=== PATIENT | female | born 1950 | race Caucasian/White ===

== ENCOUNTER 2016-08-19 10:13 | Inpatient (IN) | payer MEDICARE ==
[2016-08-19] VITALS (11 sets, daily range): BP systolic 115–146; BP diastolic 57–90; PULSE 67–125; RESP 15–31; O2SAT 90–94
[~2016-08-19] VITALS: Ht 160 cm; Wt 97.0 kg
[~2016-08-19 10:13] MED LIST: ALBU2.5V4 IH; ALBU8.5H2 INHALATION; ASPI-973 PO; CYCL10TA9 PO; FURO-129 PO; HYDR-656 PO; KLO2T PO; LEVO75TA4 PO; METO25TA6 PO; MORP-32 PO; NITR0.4T6 SL; OXYC10TA8 PO; PANT40TA3 PO; POTA2TAB5 PO; PRA20 PO; VENL150C PO; VITA150T PO; WARF4TAB6 PO
--- NOTE | 2016-08-19 10:54 | DRSVH ---
PROCEDURE: X-RAY CHEST ONE VIEW, PORTABLE ([id number]) INDICATIONS: 66 year-old female with dyspnea. TECHNIQUE: One view of the chest was acquired. COMPARISON: [facility], CR, XR CHEST 1VW (PORTABLE), 09/29/2015, 20:13. [facility] (PORT[facility]), 05/17/2015, 15:16. [facility], CR, XR CHEST 2VW, 09/2015, 10:50. FINDINGS: Surgical changes and devices: None. Lungs and pleura: No pleural effusions or pneumothorax. Lungs are clear. Mediastinum: Mediastinal contours appear normal. Heart size is normal. Bones and chest wall: No suspicious bony lesions. Overlying soft tissues appear unremarkable. IMPRESSION: No acute cardiopulmonary disease. Dictated by: Eliazar Boles M.D. on 08/19/2016 at 10:53 Approved by: Eliazar Boles M.D. on 08/19/2016 at 10:53
--- NOTE | 2016-08-19 11:53 | ED.REPORT ---
HPI-Dyspnea / Wheezing Date of Service Aug 19, 2016 ED Provider: Jayy Lewis MD Patient has a three-month history of progressive shortness of breath. He states that her at-home medications or shortness of breath consist of albuterol inhaler as well as nebulized. This morning she states that she became increasingly short of breath and the albuterol was not able to adequately cover her symptoms. She frequently sees her PCP but does not have a nail sticker at this time. She states that her shortness of breath has become increasingly worse over the last couple of months to the point that she can hardly walk within her house without getting short of breath. She has never had a lung function test. Nursing Notes Stated Complaint: SHORTNESS OF BREATH Chief Complaint: Respiratory Distress Nursing Notes Reviewed: Yes Allergies: Coded Allergies: heparin (Verified Allergy, Unknown, RASH, 09/29/15) GAVE MORPHINE AND HEPARIN TODAY IV A FEW MIN APART, SHORTLY AFTER NOTED RASH SPREADING UP RIGHT FA. MD CALLED IN STOPPED ALL OTHER IV MEDS PT GIVEN BENADRYL, RASH WENT AWAY OVER 15 MIN. PT TAKES MORPHINE ER TABLETS DAILY quetiapine (Verified Adverse Reaction, Severe, Hallucinations, HEARING VOICES, 08/19/16) Scheduled Albuterol Neb Soln (Albuterol Neb Soln) 2.5 Mg/3 Ml Vial.neb 2.5 MG IH QID Albuterol/Ipratropium (Combivent Respimat Inhal [place]) 120 Spr/4 Gm Inhaler 1 PUFF IH QID Aspirin (Aspirin) 81 Mg Tablet 81 MG PO QAM Clonazepam (Clonazepam) 2 Mg Tab 2 MG PO BID Cyclobenzaprine (Cyclobenzaprine) 10 Mg Tablet 20 MG PO HS Fluticasone/Salmeterol (Advair Hfa 115-21 Mcg Inhaler) 12 Gm Hfa.aer.ad 1 PUFF IH BID Furosemide (Lasix) 20 Mg Tablet 60 MG PO QAM Haloperidol (Haloperidol) 10 Mg Tablet 10 MG PO HS Levothyroxine (Levothyroxine) 75 Mcg Tablet 75 MCG PO QAM Metoprolol Tartrate (Metoprolol Tartrate) 25 Mg Tablet 12.5 MG PO BID Morphine Sulfate ER (Morphine Sulfate ER) 15 Mg Tablet.er 15 MG PO BID Nitroglycerin SL (Nitroglycerin SL) 0.4 Mg Tab.subl 0.4 MG SL Q5MIN Pantoprazole DR (Pantoprazole DR) 40 Mg Tablet.dr 40 MG PO DAILY Potassium Chloride ER (Potassium Chloride ER) 20 Meq Tablet.er 20 MEQ PO DAILYWM TAKE WITH FOOD Pravastatin (Pravachol) 20 Mg Tab 20 MG PO HS Venlafaxine ER (Effexor XR) 150 Mg Cap.er.24h 150 MG PO QAM Vitamin B Complex & Vit C No.4 (Super B Complex) 150 Mg Tablet 150 MG PO HS Warfarin Sodium (Warfarin Sodium) 4 Mg Tablet 4 MG PO DAILY EXCEPT WED WARFARIN 6 MG ON WEDNESDAY AND 4 MG ALL OTHER DAYS Warfarin Sodium (Warfarin Sodium) 4 Mg Tablet 6 MG PO WEDNESDAY WARFARIN 6 MG ON WEDNESDAY AND 4 MG ALL OTHER DAYS oxyCODONE (oxyCODONE) 10 Mg Tablet 10 MG PO QID Scheduled PRN Albuterol HFA (Proair HFA) 8.5 Gm Hfa.aer.ad 2 PUFFS INHALATION Q4H PRN PRN For Shortness of Breath Clonazepam (Clonazepam) 2 Mg Tablet 2 MG PO DAILYWL PRN PRN For Anxiety MAY TAKE ADDITIONAL DOSE IN AFTERNOON FOR ANXIETY IN ADDITION TO SCHEDULED 2 MG BID General Time Seen by MD: 11:10 Chief Complaint Shortness of breath, Wheezing Past Medical History Past Medical History CHF COPD CAD DM Hyperlipidemia Hypertension Emphysema Anxiety depression Bipolar Past Surgical History Angioplasty with stent Smoking History Former Smoker Social History Alcohol Use: Denies alcohol use Drug Use: Denies drug use Ambulatory Status Independent Review of Systems Complete sys rev & neg: except as marked. Physical Exam Initial Vital Signs Vital Signs (First) Date Time Temp Pulse Resp B/P Pulse Ox O2 Delivery O2 Flow Rate FiO2 08/19/16 10:25 36.8 75 24 130/59 92 Nasal Cannula 3 Interpretation & Diagnostics Lab Results Interpretation Result Diagram: 08/19/16 1145 08/19/16 1145 Test 08/19/16 11:35 08/19/16 11:45 08/19/16 12:18 Hold Urine Received (Received) White Blood Count 10.9th/mm3 (3.8-10.1) Red Blood Count 4.77mil/mm3 (3.90-5.20) Hemoglobin 11.8g/dL (12.0-15.6) Hematocrit 38.0% (35.0-46.0) Mean Corpuscular Volume 79.7fL (81-100) Mean Corpuscular Hemoglobin 24.7pg (27.0-35.0) Mean Corpuscular Hemoglobin Concent 31.1% (32.0-37.0) Red Cell Distribution Width 15.0% (12.3-15.4) Platelet Count 410bil/L (150-400) Neutrophils (%) (Auto) 73.5% (40-74) Lymphocytes (%) (Auto) 14.7% (14-46) Monocytes (%) (Auto) 4.6% (4-12) Eosinophils (%) (Auto) 6.3% (0-5) Basophils (%) (Auto) 0.5% (0-3) Prothrombin Time 26.3sec (8.1-12.5) Prothromb Time International Ratio 2.41ratio D-Dimer < 0.50mg/L FEU (<0.50) Sodium Level 141mEq/L (134-144) Potassium Level 3.8mEq/L (3.5-5.2) Chloride Level 97mEq/L (97-108) Carbon Dioxide Level 29mmol/L (18-29) Blood Urea Nitrogen 6mg/dL (8-27) Creatinine 0.60mg/dL (0.57-1.00) Estimat Glomerular Filtration Rate 144mL/min (>59) Glucose Level 137mg/dL (60-99) Calcium Level 9.5mg/dL (8.5-10.1) Total Bilirubin 0.3mg/dL (0.0-1.2) Aspartate Amino Transf (AST/SGOT) 29U/L (0-50) Alanine Aminotransferase (ALT/SGPT) 20U/L (0-32) Alkaline Phosphatase 77U/L (25-165) Troponin T 0.010ug/L (0.0-0.011) Pro-B-Type Natriuretic Peptide 151.5pg/mL (0-301) Total Protein 7.4g/dL (6.4-8.4) Albumin 3.9g/dL (3.4-5.0) Urine Color Straw (YELLOW) Urine Appearance Clear (CLEAR,HAZY) Urine pH 7.5 (5.0-8.0) Urine Specific [place] 1.005 (1.003-1.035) Urine Protein Negativemg/dL (NEG,TRACE) Urine Glucose (UA) Negativemg/dL (NEGATIVE) Urine Ketones Negativemg/dL (NEGATIVE) Urine Occult Blood Negative (NEGATIVE) Urine Nitrite Negative (NEGATIVE) Urine Bilirubin Negative (NEGATIVE) Urine Urobilinogen Normalmg/dL (NORMAL) Urine Leukocyte Esterase Negative (NEGATIVE) Urine RBC 0-2/hpf (0-2) Urine WBC 0-5/hpf (0-5) Urine Epithelial Cells Occasional/hpf (NONE-MOD) Urine Crystals None seen (NONE SEEN) Urine Bacteria Few/hpf (NONE-FEW) Urine Hyaline Casts None/lpf (NONE) Urine Granular Casts None seen (NONE SEEN) Urine Waxy Casts None seen (NONE SEEN) Urine Red Blood Cell Casts None seen (NONE SEEN) Urine White Blood Cell Casts None seen (NONE SEEN) Urine Mucus None seen (None Seen) Urine Trichomonas None seen (NONE SEEN) Urine Yeast None (NONE SEEN) Urinalysis Comment None Urine Culture Reflexed Not indicated Re-Eval/Medical Decision Med Decision/Clinical Course Patient states that her shortness of breath has been progressive over the last 3 months. EMS stated concern for CHF which could be supported by chest x-ray however patient had no signs of fluid in the lungs on physical exam.legs are swollen however this is been present last couple months. Patient felt like she needed to void and was unable to void a significant amount and thus a bladder scan was done which showed 700 mL residual postvoid volume. At that point a Linton cath was ordered however, with another try at voiding the patient was able to void 600 mL and Linton cath withheld at this time. Patient out of breath after transferring from the bed to commode and back. Duo nebs were given and prednisone prescribed to alleviate symptoms. patient is feeling less short of breath after medications. Patient remains on 3 L oxygen in the room ABG ordered at this time showed pH = 7.437, PCO2 54, PO2 61.9, HOC 336.1. due to her feelings of shortness of breath at this time combined with the results of the ABG it will be best to admit the patient to the floor and optimize her medications for COPD exacerbation before sending her home. Consultation : Referral / Consult Name: Johanna Hernandez DO Consulted With: Hospitalist Call Returned at: 16:18 Product Development: Will see patient, Accepts admit Note: Discusses pt with Dr. Hernandez Counseled Regarding: Diagnosis, Lab results, Need for admission Discharge & Departure Impression: Primary Impression: COPD with acute exacerbation Disposition: ADMITTED TO HOSPITAL Discharge Condition All VS Reviewed: Yes Condition: Stable Referrals: Frank Smart MD (PCP) Attending Statement Seen and examined with Dr Licea on 08/19. Pt becomes very SOB with transfer from commode to bed. Gave duonebx2 albuterol x2 and prednisone 40. Do not suspect infection. Will admit to hospitalist copies to: Frank Smart MD, Adam J DO Aug 19, 2016 11:52 Jayy Lewis MD Aug 19, 2016 19:32
[2016-08-19 12:12] LABS: BASOPHILS % (AUTO) 0.5 % (0-3); EOSINOPHILS % (AUTO) 6.3 % (0-5); MONOCYTES % (AUTO) 4.6 % (4-12); Mean Corpuscular Hemoglobin 24.7 pg (27.0-35.0); Mean Corpuscular Volume 79.7 fL (81-100); NEUTROPHILS % (AUTO) 73.5 % (40-74); Platelet Count 410 bil/L (150-400)
[2016-08-19 12:37] LABS: TROPONIN T 0.01 ug/L (0.0-0.011)
[2016-08-19 12:57] LABS: APPEARANCE,URINE CLEAR (CLEAR,HAZY); COLOR,URINE STRAW (YELLOW); OCCULT BLOOD,URINE NEGATIVE (NEGATIVE); PH,URINE 7.5 (5.0-8.0); UROBILINOGEN,URINE NORMAL (NORMAL)
[2016-08-19] MEDS ORDERED: Albuterol-Ipratropium 3 mL Inhalation Solution ONE (12:57)
[2016-08-19] MEDS ORDERED: Albuterol 2.5 mg/3 mL Inhalation Solution NEB ONE (13:15)
[2016-08-19] MEDS ORDERED: Albuterol-Ipratropium 3 mL Inhalation Solution NEB ONE (13:15)
[2016-08-19] MEDS ORDERED: predniSONE 20 mg Tablet PO ONE (13:35)
--- NOTE | 2016-08-19 14:38 | ABG ---
DateTimeAnalyzed 14:31:11 -_ pH ____7.437 - 7.350 7.450 pCO2 ___53.6__ -mmHg 35.0 45.0 pO2 ___61.9__ -mmHg 69.0 116 HCO3- ___36.1__ -mmol/L 22.0 26.0 ABE ___10.8__ -mmol/L tHb ___11.3__ -g/dL O2Hb ___91.2__ -% COHb ____1.2__ -% 1.5 MetHb ____0.1__ -% sO2 ___92.4__ -% FIO2 ___32.0__ -% Drawn By as - Date/Time Notified____ 14:38:00 -_ Spontaneous_RR 18 -b/min Liter_Flow ____3.00_ -L/min Oxygen Device 1 __CANNULA - Notified By ams - Notified Whom ___Dr. Slack - K+ ____3.5__ -mmol/L tO2 ___14.6__ -Vol% Alexx test _Positive -
[2016-08-19] MEDS ORDERED: HALO10TA PO (15:25)
[2016-08-19] MEDS ORDERED: POTA-62 PO (15:25)
[2016-08-19] MEDS ORDERED: IPRA4AER IH (15:25)
[2016-08-19] MEDS ORDERED: RANI150C4 PO (15:26)
[2016-08-19] MEDS ORDERED: Alum-Mag Hydrox-Simeth 30 mL Suspension PO PRN (17:55)
[2016-08-19] MEDS ORDERED: Ondansetron 2 mg/mL 2 mL Inj IVPUSH PRN (17:55)
--- NOTE | 2016-08-19 18:11 | PCM.HPMED ---
Subjective Date of Service Aug 19, 2016 Primary Provider: Admitting Physician: Johanna Hernandze DO Primary Care Physician: Frank Smart MD Attending Physician: Johanna Hernandez DO Admit Status: From the Emergency Department Chief Complaint: Dyspnea History of Present Illness: 66-year-old Mrs. Martinez is a pleasant white lady with a past medical history of congestive heart failure, COPD, A. fib, diabetes, hyperlipidemia, anxiety, depression, bipolar disorder is presenting today with concerns of increased dyspnea. She says that it has been ongoing for 5-6 days ago, she started having symptoms and she went to visit a relative who is dying of lung cancer, who smoked heavily at their home. She thinks that she may havegotten worse at that time. This a.m. she could not breathe at all, at baseline she only walks from room to room in the house today she could not even walk from the commode to her bed. She says that she had no fevers she has chills. She has no sputum and no sick contacts otherwise. She says that at baseline she some constipation but otherwise no other GI symptoms. She had chest tightness at home that has resolved since getting the breathing treatments at the ER. She says that she has a lot of wheezing and no cough however she has no headaches states that her eyesight has been gradually getting worse. In spite of getting new glasses. She has chronic pain for which she takes a lot of pain medication , chronic anxiety for which she takes benzodiazepines. All of her medications are prescribed by her doctor /PCP. 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 In the ER chest x-ray was nonacute by her white count was 10.9. She was given duonebs, albuterol, Zofran, prednisone by mouth, oxycodone. ABG showed overall pH of 7.43 compensated with a carbon dioxide of 53 and bicarbonate of 36 showing chronic compensation she was saturating on 3 L fully. Review of Systems: Gen.: No weight gain patient has been having fevers and malaise Eyes: states she can no longer read though she can see HEENT: No nose/throat drainage, no pain in ears or throat, no hearing loss Lymph: No lymph nodes noted Cardiac: No chest pain, orthopnea, PND, palpitations , + for pedal edema, + for dyspnea on exertion Pulmonary: wheezing or bringing up of sputum + worsening dyspnea and cough, left-sided chest pain GI: No anorexia nausea vomiting blood or black in the stool, + for constipation : no dysuria hematuria urinary frequency or decrease in urine output Musculoskeletal: chronic knee and back pain Neuro: No syncope, seizures no loss of consciousness no new focal weakness, numbness or tingling Psychiatric: New new anxiety insomnia or depression Endocrine: No new heat or cold intolerances polyuria or polydipsia Hematology: No lymphadenopathy or easy bleeding or bruising noted skin: No new rashes, stasis dermatitis Allergies Coded Allergies: heparin (Verified Allergy, Unknown, RASH, 09/29/15) GAVE MORPHINE AND HEPARIN TODAY IV A FEW MIN APART, SHORTLY AFTER NOTED RASH SPREADING UP RIGHT FA. MD CALLED IN STOPPED ALL OTHER IV MEDS PT GIVEN BENADRYL, RASH WENT AWAY OVER 15 MIN. PT TAKES MORPHINE ER TABLETS DAILY quetiapine (Verified Adverse Reaction, Severe, Hallucinations, HEARING VOICES, 08/19/16) Home Medications Current medications include albuterol, DuoNeb nebs, Advair, clonazepam, Flexeril , Haldol, levothyroxine, metoprolol, morphine so that extended release, nitroglycerin when necessary, pantoprazole, potassium chloride, refused furosemide, pravastatin, Zantac, Effexor, Coumadin, Advair when necessary hydroxyzine and oxycodone PMH Past medical history remarkable for systemic causes congestive heart failure, A. fib, COPD, diabetes, hyperlipidemia, anxiety, depression, bipolar disorder Surgical History Angioplasty with stents Family History Has a , former smoker, independent at home, 3 L at home, she sues no walker, quit smoking in 2011 after 50 years smoking 2 pack per day, also smokes but he quit as well. Social History Hx Alcohol Use: No Hx Substance Use: No Hx Tobacco Use: No Smoking Status: Former Smoker (50 yrs of 2 PPD) Living Arrangement: with Family Exam Vital Signs Vital Sign - Last Date Time Temp Pulse Resp B/P Pulse Ox O2 Delivery O2 Flow Rate FiO2 08/19/16 17:43 125 08/19/16 17:03 36.7 20 146/90 90 Room Air 08/19/16 16:06 3 Exam Gen.: No acute distress HEENT: NCAT, positive for exophthalmos IVP Extraocular eye movements are intact Lungs: The diffuse wheezing and decreased breath sounds no crackles Heart: Regular rate and rhythm no S3-S4 murmurs Neck: JVD negative, Trachea central Abd: Abdomen soft nontender normal bowel sounds, neg for organomegaly Ext: trace edema is present , no asymmetry Vasc: palpable pedal pulses Neuro: No focal deficits, AOA X3 Psych: Neg for anxiety and agitation Lab and Diagnostics Result Diagram: 08/19/16 1145 08/19/16 1145 X-Rays, CTs and MRIs Chest x-ray without acute Assessment & Plan This is a 66 yo WF with copd , DM 2, chronic pain, HFpEF CAD presenting with acute copd exacerbation. Acute on chronic COPD exacerbation POA: -- I reviewed the CXR from ED myself and did not see a concern f or pneumonia. -- ABG in ED showed compensated chronic hypercapnic resp failure -- Solu-Medrol 40 mg every 8 hours and Zithromax IV 500 mg QD -- The nebs, albuterol treatments when necessary, and continue her home Advair ( or Symbicort here) -- Sputum cultures, respiratory panel are ordered Congestive heart failure, HFpEF chronic active -- Continue furosemide home med -- Reviewed patient's prior 2013 echo to understand the diagnosis, 65% EF, no major issues Diabetes mellitus II chronic active --order A1c -- Low SSI Hyperlipidemia chronic active -- continue home statin Anxiety chronic active -- Decrease home med clonazepam by half Chronic pain syndrome, active -- Morphine 10 mg PO BID PO -- Oxycodone 5 mg Po Q4HPRN Depression chronic active : Continue present continue home meds Bipolar disorder chronic, active -- hold off on Haldol Pain Evaluation: Adequate Pain Control Resuscitation Status: CPR: Attempt Resuscitation ( is her alternate decision-maker) Time spent 45 min Johanna Hernandez DO Aug 19, 2016 18:11
[2016-08-19] MEDS ORDERED: 0.9% Sodium Chloride 1,000 ML IV SCH (18:13)
[2016-08-19] MEDS ORDERED: Polyethylene Glycol (PEG) 17 Gm Powder PO PRN (18:15)
[2016-08-19 18:24] LABS: INR 2.41 ratio
[2016-08-19] MEDS ORDERED: KLO2T PO (18:27)
[2016-08-19] MEDS ORDERED: WARF4TAB6 PO (18:30)
--- NOTE | 2016-08-19 18:31 | NUR ---
ADMIT 1700 to [facility] [place] arrived at 1700 from ER where she came in for shortness of breath. At rest patient is O2 sat 94% on 2L NC, but patient gets SOB very quickly with any activity. Patient c/o headache, Tylenol given. Dr Hernandez in interviewing patient now. Admit and med rec done in ER. Patient states she has constipation due to pain medications. ABG's done in ER, pH 7.43, WBC 10.9, CRX (-), S/L, and 1PA to commode. Lung sounds bilateral wheezes, cough, and diminish bilateral. VSS , BG 135.
[2016-08-19] MEDS ORDERED: FLUT12AE4 IH (18:32)
[2016-08-19] MEDS ORDERED: Albuterol 2.5 mg/3 mL Inhalation Solution NEB PRN (18:45)
[2016-08-19] MEDS ORDERED: 0.9% Sodium Chloride 250 ML ONE (20:48)
[2016-08-19] MEDS: Fluticasone-Salmeterol 100-50 Inhaler INHALATION SCH (20:55)
[2016-08-19] MEDS: guaiFENesin 600 mg ER12 Tablet PO SCH (20:55)
[2016-08-19] MEDS: MethylprednisoLONE Sodium Succinate 40 mg/mL Inj IVPUSH SCH (20:55)
[2016-08-19] MEDS: Morphine ER 15 mg (MS Contin) Tablet PO SCH (20:56)
[2016-08-19] MEDS: Vitamin B Complex/Vit C Tablet PO SCH (20:56)
[2016-08-19] MEDS ORDERED: Azithromycin Inj 500 MG in Dextrose 5% w/Vial Mate 250 ML IV SCH (21:00)
[2016-08-19] MEDS ORDERED: Albuterol-Ipratropium 3 mL Inhalation Solution NEB SCH (21:30)
[2016-08-20] VITALS (14 sets, daily range): BP systolic 112–181; BP diastolic 63–97; PULSE 65–93; RESP 18–22; O2SAT 90–95
[2016-08-20] MEDS: MethylprednisoLONE Sodium Succinate 40 mg/mL Inj IVPUSH SCH ×3 (04:23→20:03)
[2016-08-20] MEDS: Pantoprazole 40 mg ER24 Tablet PO SCH (06:17)
[2016-08-20] MEDS ORDERED: Levalbuterol 1.25 mg/0.5mL Inhalation Solution NEB PRN (07:25)
--- NOTE | 2016-08-20 07:42 | NUR ---
A-fib RVR Pt converted to A-fib around 0630, HR 150-190. Stat EKG ordered. paged. Pt continues to run HR 140-160. paged a second time with no response. Day blue team paged. Pt then converted back to Sinus rhythm HR 60-70's at around 0645. Dr. Hernandez did call back, aware of pt's rhythm, no new orders at this time.
[2016-08-20] MEDS: Potassium Chloride 20 mEq SR Tablet PO SCH (07:50)
[2016-08-20] MEDS: Morphine ER 15 mg (MS Contin) Tablet PO SCH ×2 (07:51→20:04)
[2016-08-20] MEDS: guaiFENesin 600 mg ER12 Tablet PO SCH ×2 (07:52→20:03)
[2016-08-20] MEDS: Fluticasone-Salmeterol 100-50 Inhaler INHALATION SCH ×2 (07:52→20:06)
[2016-08-20] MEDS: Venlafaxine XR 75 mg ER24 Capsule PO SCH (07:52)
--- NOTE | 2016-08-20 08:28 | PCM.PNMED ---
Subjective Date of Service Aug 20, 2016 Exam Vital Signs Vital Sign - Last Date Time Temp Pulse Resp B/P Pulse Ox O2 Delivery O2 Flow Rate FiO2 08/20/16 06:46 36.7 76 22 116/71 90 Nasal Cannula 3.00 Intake and Output 08/19/16 08/19/16 08/20/16 Cumulative From/Thru 15:00 23:00 07:00 08/19/16 10:25 - 08/20/16 06:58 Intake Total 300 ml 530 ml 830 ml Output Total 850 ml 400 ml 1250 ml Balance -850 ml 300 ml 130 ml -420 ml Intake Oral 300 ml 200 ml 500 ml IV Total 330 ml 330 ml Output Urine Total 850 ml 400 ml 1250 ml Bladder Scan Volume Amount 771 # Voids 2 1 3 # Bowel Movements 0 0 Lab and Diagnostics Result Diagram: 08/19/16 1145 08/19/16 1145 X-Rays, CTs and MRIs Chest x-ray without acute Assessment & Plan This is a 66 yo WF with copd , DM 2, chronic pain, HFpEF CAD presenting with acute copd exacerbation. Acute on chronic COPD exacerbation POA: -- I reviewed the CXR from ED myself and did not see a concern f or pneumonia. -- ABG in ED showed compensated chronic hypercapnic resp failure -- Solu-Medrol 40 mg every 8 hours and Zithromax IV 500 mg QD -- The nebs, albuterol treatments when necessary, and continue her home Advair ( or Symbicort here) -- Sputum cultures, respiratory panel are ordered Congestive heart failure, HFpEF chronic active -- Continue furosemide home med -- Reviewed patient's prior 2014 echo to understand the diagnosis, 65% EF, no major issues Diabetes mellitus II chronic active --order A1c -- Low SSI Hyperlipidemia chronic active -- continue home statin Anxiety chronic active -- Decrease home med clonazepam by half Chronic pain syndrome, active -- Morphine 10 mg PO BID PO -- Oxycodone 5 mg Po Q4HPRN Depression chronic active : Continue present continue home meds Bipolar disorder chronic, active -- hold off on Haldol Resuscitation Status: CPR: Attempt Resuscitation ( is her alternate decision-maker) Johanna Hernandez DO Aug 20, 2016 08:28
[2016-08-20] MEDS: Ipratropium 0.02% 0.5 mg/2.5 mL Inhalation Solution NEB SCH ×3 (08:37→20:23)
[2016-08-20 09:49] LABS: INR 2.23 ratio
--- NOTE | 2016-08-20 10:22 | NUR ---
Social Work: Initial Assessment Data: Pt is a 66 y/o female admitted for COPD exacerbation. Pt's PCP is Dr Smart, pt's insurance is Medicare with [employer] supp. EMR reviewed. PA[employer] INTERNS[employer]IP met with pt and spouse, role explained. Pt states she lives in [place] in a single story home with her spouse where she uses a cane and walker and has home O2 through [employer]. Pt has no hx of HH or SNF, no LTC or VA benefits, and is not a caregiver. No d/c planning needs anticipated at this time. PAID INTERNSHIP will continue to follow if needs arise. Assessment: Pt who is independent at baseline. Plan: Pt will d/c home via POV with spouse when medically stable for d/c. No d/c planning needs anticipated at this time. PAID INTERNSHIP will continue to follow if needs arise. AMIE Dunlap Addendum: 08/20/16 at 1027 by SHERRI HEALY Amended: Links added.
--- NOTE | 2016-08-20 11:13 | PCM.PHAPRO ---
Progress Dyspnea RPh KARRI RTM Date Aug 20 INR 2.41 2.23 INR change -0.18 Warf Dose 6 MG 4 MG Frank Switf Pharm.D Aug 20, 2016 11:13
--- NOTE | 2016-08-20 15:14 | NUR ---
Case Management: IMM explained to patient at 1500, all questions answered. Signed original placed in chart, copy given to patient. Arleen Santana RN
[2016-08-20] MEDS: Vitamin B Complex/Vit C Tablet PO SCH (20:06)
--- NOTE | 2016-08-20 23:07 | PCM.PNMED ---
Subjective Date of Service Aug 20, 2016 Subjective Called the tele, they reported 20 min of Afib in RVR this AM at 6:30 and highest rate of 180, pt says she did not feel a thing. She says she dis not even know we reduced her pain med dosage because"they don't do anythign anyways " Her wheezing has considerably improves, she is on 2L via NC. Not able to cough up anything. Exam Vital Signs Vital Sign - Last Date Time Temp Pulse Resp B/P Pulse Ox O2 Delivery O2 Flow Rate FiO2 08/20/16 15:25 Supplement Oxygen 08/20/16 15:01 36.8 80 20 136/63 91 3.00 Intake and Output 08/19/16 08/19/16 08/20/16 Cumulative From/Thru 15:00 23:00 07:00 08/19/16 10:25 - 08/20/16 06:58 Intake Total 300 ml 530 ml 830 ml Output Total 850 ml 400 ml 1250 ml Balance -850 ml 300 ml 130 ml -420 ml Intake Oral 300 ml 200 ml 500 ml IV Total 330 ml 330 ml Output Urine Total 850 ml 400 ml 1250 ml Bladder Scan Volume Amount 771 # Voids 2 1 3 # Bowel Movements 0 0 Exam Gen.: No acute distress HEENT: NCAT, positive for exophthalmos IVP Extraocular eye movements are intact Lungs: Much improved breath sounds, no crackles Heart: Regular rate and rhythm no S3-S4 murmurs Neck: JVD negative, Trachea central Abd: Abdomen soft nontender normal bowel sounds, neg for organomegaly Ext: trace edema is present , no asymmetry Vasc: palpable pedal pulses Neuro: No focal deficits, AOA X3 Psych: Neg for anxiety and agitation IVs and Medications IV Fluids None Medications Reviewed: Medications were reviewed in detail Lab and Diagnostics Laboratory Tests Test 08/20/16 09:06 Prothrombin Time 24.2sec (8.1-12.5) Prothromb Time International Ratio 2.23ratio Thyroid Stimulating Hormone (TSH) 0.218uIU/mL (0.450-4.500) Free Thyroxine 1.66ng/dL (0.82-1.77) Microbiology 08/19/16 Adenovirus DNA (PCR) - Final, Complete Not Detected 08/19/16 Coronavirus 229E PCR - Final, Complete Not Detected 08/19/16 Coronavirus HKU1 PCR - Final, Complete Not Detected 08/19/16 Coronavirus NL63 PCR - Final, Complete Not Detected 08/19/16 Coronavirus OC43 PCR - Final, Complete Not Detected 08/19/16 Influenza Type A (PCR) - Final, Complete Not Detected 08/19/16 Influenza Type B (PCR) - Final, Complete Not Detected 08/19/16 Human Metapneumovirus (PCR) (ARTURO) - Final, Complete Not Detected 08/19/16 Rhinovirus (PCR)(ARTURO) - Final, Complete Not Detected 08/19/16 Parainfluenza Virus Type 1 (PCR) - Final, Complete Not Detected 08/19/16 Parainfluenza Virus Type 2 (PCR) - Final, Complete Not Detected 08/19/16 Parainfluenza Virus Type 3 (PCR) - Final, Complete Not Detected 08/19/16 Parainfluenza Virus Type 4 (NAAT) - Final, Complete Not Detected 08/19/16 Respiratory Syncytial Virus (PCR)MD - Final, Complete Not Detected 08/19/16 Chlamydia pneumoniae (PCR) - Final, Complete Not Detected 08/19/16 Mycoplasma pneumoniae DNA Detection - Final, Complete Result Diagram: 08/19/16 1145 08/19/16 1145 X-Rays, CTs and MRIs Chest x-ray without acute Assessment & Plan This is a 66 yo WF with copd , DM 2, chronic pain, HFpEF CAD presenting with acute copd exacerbation. Acute on chronic COPD exacerbation POA: -- I reviewed the CXR from ED myself and did not see a concern f or pneumonia. -- ABG in ED showed compensated chronic hypercapnic resp failure -- Solu-Medrol 40 mg every 12 hours and doxycycline 100 mg BID IV for bronchitis -- The nebs, albuterol treatments when necessary, and continue her home Advair ( or Symbicort here) -- Sputum cultures, respiratory panel are ordered Insomnia, poa -- melatonin hs prn Congestive heart failure, HFpEF chronic active -- Continue furosemide home med -- Reviewed patient's prior 2013 echo to understand the diagnosis, 65% EF, no major issues Diabetes mellitus II chronic active -- A1C 6.4, pre-diabetic: life style counseling -- Low SSI Hyperlipidemia chronic active -- continue home statin Anxiety chronic active -- Decrease home med clonazepam by half Chronic pain syndrome, active -- Morphine 10 mg PO BID PO -- Oxycodone 5 mg Po Q4HPRN Depression chronic active : Continue present continue home meds Bipolar disorder chronic, active -- hold off on Haldol Pain Evaluation: Adequate Pain Control Resuscitation Status: CPR: Attempt Resuscitation ( is her alternate decision-maker) Time spent 25 min Johanna Hernandez DO Aug 20, 2016 18:18
[2016-08-21] VITALS (13 sets, daily range): BP systolic 107–170; BP diastolic 70–86; PULSE 62–85; RESP 18–26; O2SAT 94–97
[2016-08-21] MEDS: Ipratropium 0.02% 0.5 mg/2.5 mL Inhalation Solution NEB SCH ×4 (03:32→20:54)
[2016-08-21] MEDS: Pantoprazole 40 mg ER24 Tablet PO SCH (06:12)
[2016-08-21 06:39] LABS: INR 2.51 ratio
[2016-08-21] MEDS: Venlafaxine XR 75 mg ER24 Capsule PO SCH (08:30)
[2016-08-21] MEDS ORDERED: Levalbuterol 1.25 mg/0.5mL Inhalation Solution NEB ONE (08:50)
--- NOTE | 2016-08-21 09:02 | PCM.PNMED ---
Subjective Date of Service Aug 21, 2016 Subjective Patient is having acute chest pain, got called to bed side during the am rounds. Says pain is substernal, no back pain,. endorsing dyspnea, and slight nausea. Exam Vital Signs Vital Sign - Last Date Time Temp Pulse Resp B/P Pulse Ox O2 Delivery O2 Flow Rate FiO2 08/21/16 08:38 36.6 78 20 141/76 94 Nasal Cannula 3.50 Intake and Output 08/20/16 08/20/16 08/21/16 Cumulative From/Thru 15:00 23:00 07:00 08/19/16 10:25 - 08/21/16 05:06 Intake Total 1461 ml 2291 ml Output Total 1475 ml 2725 ml Balance -14 ml -434 ml Intake Oral 1461 ml 1961 ml IV Total 330 ml Output Urine Total 1475 ml 2725 ml # Voids 3 # Bowel Movements 0 Exam General: Distressed HEENT: Exopthalmos Heart: RRR, no s3/s4 sounds Lungs: Increased WOB, no wheezing, no crackles, Abd: Non distended Ext: Trace edema Psych: anxious Neuro: no focal deficits IVs and Medications IV Fluids none Medications Reviewed: Medications were reviewed in detail Lab and Diagnostics Result Diagram: 08/19/16 1145 08/21/16 0539 X-Rays, CTs and MRIs PROCEDURE: X-RAY CHEST ONE VIEW ([id number]) INDICATIONS: chest pain IMPRESSION: Bibasilar atelectasis versus aspiration or pneumonia. Correlate clinically. Dictated by: Kehinde Lobo RRA Interpreted: Jeniffer Branham MD on 08/21/2016 at 9:41 Approved by: Jeniffer Branham M.D. on 08/21/2016 at 14:12 Assessment & Plan This is a 66 yo WF with copd , DM 2, chronic pain, HFpEF CAD presenting with acute copd exacerbation. Acute chest pain -- not relieved with morphoine 2 mg IV, nitro, GI cocktail, ASA, bretahing tx -- EKG non -acute -- trop neg -- Reviewed cxr myself, nad: "bibalsilar atelectasis vs pneumonia, clinical correlation is required" -- Talked to dr. Pina who tells me pt was recently catheterized, she recommends to just to trend trops, stress test ok -- NM MIBI test 6/30 am Acute on chronic COPD exacerbation POA: Improving -- I reviewed the CXR from ED myself and did not see a concern f or pneumonia. -- ABG in ED showed compensated chronic hypercapnic resp failure -- Solu-Medrol 40 mg every 12 hours and doxycycline 100 mg BID IV for bronchitis -- The nebs, albuterol treatments when necessary, and continue her home Advair ( or Symbicort here) -- Sputum cultures ordered but canceled as she could not expectorate, respiratory panel are ordered and neg Insomnia, poa active -- melatonin hs prn Congestive heart failure, HFpEF chronic active -- Continue furosemide home med -- Reviewed patient's prior 2013 echo to understand the diagnosis, 65% EF, no major issues Diabetes mellitus II chronic active -- A1C 6.4, pre-diabetic: life style counseling -- Low SSI Hyperlipidemia chronic active -- continue home statin Anxiety chronic active -- Decrease home med clonazepam by half Chronic pain syndrome, active -- Morphine 10 mg PO BID PO -- Oxycodone 5 mg Po Q4HPRN -- She says she can stay on this dose Depression chronic active : Continue present continue home meds Bipolar disorder chronic, active -- hold off on Haldol Pain Evaluation: Adequate Pain Control Resuscitation Status: CPR: Attempt Resuscitation ( is her alternate decision-maker) Time spent 35 min Johanna Hernandez DO Aug 21, 2016 09:02
--- NOTE | 2016-08-21 09:10 | ABG ---
DateTimeAnalyzed 09:03:00 -_ pH ____7.459 - 7.350 7.450 pCO2 ___42.7__ -mmHg 35.0 45.0 pO2 ___54.7__ -mmHg 69.0 116 HCO3- ___29.9__ -mmol/L 22.0 26.0 ABE ____5.8__ -mmol/L -2.0 2.0 tHb ___11.8__ -g/dL O2Hb ___88.2__ -% COHb ____1.2__ -% MetHb ____0.9__ -% sO2 ___90.1__ -% FIO2 ___28.0__ -% Drawn By NB - Device 2 L/M 3 - Date/Time Notified____ 09:11:00 -_ Oxygen Device 1 __CANNULA - Notified By nb - Notified Whom Dr Hernandez - B 759 -mmHg tO2 ___14.6__ -Vol% Alexx test N/A -
[2016-08-21] MEDS ORDERED: LidocaineVisc 2%:Antacid 1:1 10 mL Syringe PO ONE (09:15)
[2016-08-21] MEDS: MethylprednisoLONE Sodium Succinate 40 mg/mL Inj IVPUSH SCH ×2 (10:18→21:17)
[2016-08-21] MEDS: Potassium Chloride 20 mEq SR Tablet PO SCH (10:22)
[2016-08-21] MEDS: Morphine ER 15 mg (MS Contin) Tablet PO SCH ×2 (10:23→21:17)
[2016-08-21] MEDS: guaiFENesin 600 mg ER12 Tablet PO SCH ×2 (10:28→21:17)
[2016-08-21] MEDS: Fluticasone-Salmeterol 100-50 Inhaler INHALATION SCH ×2 (10:29→21:16)
--- NOTE | 2016-08-21 11:54 | NUR ---
Chest Pain: Patient had chest pain this morning of 10/10 scale at 0850 NTG x3 was given with some relief . The pain came down to a 6 after the 3 NTG and Morphine 2 mg x2 IV per MD order. The patient rcvd an EKG and ABGs were sent to the lab and Troponin was drawn also per MD . The Troponin was negative. The other labs are pending. At 1000 patient stated that her pain was 0 and patient stated that she felt her Gerd was possibly the reason for the pain. Per MD a GI cocktail was administered and patient has had no further complaints. Addendum: 08/21/16 at 1611 by LY WEINER RN Patient has experienced no further chest pain today, she did c/o head pain due to NTG adm for the chest pain. PRN pain med given with good relief.
--- NOTE | 2016-08-21 14:15 | DRSVH ---
PROCEDURE: X-RAY CHEST ONE VIEW ([id number]) INDICATIONS: chest pain TECHNIQUE: One view of the chest was acquired. COMPARISON: [facility], CR, XR CHEST 2VW, 04/30/2015, 10:50. [facility], CR, XR CHEST 1VW (PORTABLE), 08/19/2016, 10:32. FINDINGS: Surgical changes and devices: None. Lungs and pleura: No pleural effusions or pneumothorax. Bibasilar airspace opacities present. Mediastinum: Mediastinal contours appear normal. Heart size is normal. Bones and chest wall: No suspicious bony lesions. Overlying soft tissues appear unremarkable. IMPRESSION: Bibasilar atelectasis versus aspiration or pneumonia. Correlate clinically. Dictated by: Kehinde ZAMUDIO Interpreted: Jeniffer Branham MD on 08/21/2016 at 9:41 Approved by: Jeniffer Branham M.D. on 08/21/2016 at 14:12
[2016-08-21] MEDS: Levalbuterol 1.25 mg/0.5mL Inhalation Solution NEB PRN ×2 (14:24→20:54)
[2016-08-21] MEDS: Vitamin B Complex/Vit C Tablet PO SCH (21:17)
[2016-08-22] VITALS (8 sets, daily range): BP systolic 122–162; BP diastolic 66–89; PULSE 64–80; RESP 16–20; O2SAT 93–98
[2016-08-22] MEDS: Ipratropium 0.02% 0.5 mg/2.5 mL Inhalation Solution NEB SCH ×2 (03:01→08:43)
[2016-08-22] MEDS: Levalbuterol 1.25 mg/0.5mL Inhalation Solution NEB PRN ×2 (03:01→08:43)
[2016-08-22 05:57] LABS: INR 2.22 ratio
--- NOTE | 2016-08-22 06:00 | NUR ---
Pain/IV Pt's IV infiltrated after IV solumedrol admin. Pt's left arm swollen, painful 10/01, heat pack to arm. Medicated pt with 5 mg PO oxycodone and clonazepam. New IV placed in Right forearm. Pt resting in bed with eyes closed after medication admin. No further c/o pain this shift.
[2016-08-22] MEDS: Pantoprazole 40 mg ER24 Tablet PO SCH (06:44)
[2016-08-22] MEDS: Potassium Chloride 20 mEq SR Tablet PO SCH (08:39)
[2016-08-22] MEDS: guaiFENesin 600 mg ER12 Tablet PO SCH (08:40)
[2016-08-22] MEDS: MethylprednisoLONE Sodium Succinate 40 mg/mL Inj IVPUSH SCH (08:40)
[2016-08-22] MEDS: Fluticasone-Salmeterol 100-50 Inhaler INHALATION SCH (08:41)
[2016-08-22] MEDS: Morphine ER 15 mg (MS Contin) Tablet PO SCH (08:45)
--- NOTE | 2016-08-22 09:15 | NUR ---
ARNALDO signed. AMIE Yates
--- NOTE | 2016-08-22 09:22 | NUR ---
Stress test : Patient went down for stress test at 0920 . She has been NPO she rcvd morning meds with sip of water ecept Metoprolol before the test,
[2016-08-22] MEDS ORDERED: Levalbuterol 1.25 mg/0.5mL Inhalation Solution NEB ONE (09:55)
[2016-08-22] MEDS: Venlafaxine XR 75 mg ER24 Capsule PO SCH (10:39)
--- NOTE | 2016-08-22 11:30 | NUR ---
Social Work-readiness for discharge: Data:EMR Reviewed. Pt is on day 3 of hospitalization for COPD per H&P. Pt is not medically stable anticipate 1-2 more days. Pt resides at home with spouse and uses home O2 at baseline. SW spoke with pt and spouse, no discharge needs identified. Pt's spouse to provide transport home at discharge. Pt to have Stress test today. No discharge needs identified. SW will continue to follow if needs arise. Assessment:pt who is independent at baseline. Plan:Pt to discharge home when medically stable via POV. No discharge needs identified. SW will continue to follow if needs arise. AMIE Yates
[2016-08-22] MEDS ORDERED: OXYC5TAB72 PO (13:41)
[2016-08-22] MEDS ORDERED: ADV100INH IH (13:41)
[2016-08-22] MEDS ORDERED: DOXY100T2 PO (13:41)
[2016-08-22] MEDS ORDERED: PRE20 PO (13:41)
--- NOTE | 2016-08-22 13:47 | PCM.DIMED ---
Discharge Instructions Date of Service Aug 22, 2016 Dates of Hospitalization Aug 19, 2016 at 15:41 Discharge Diagnosis Discharge Diagnosis COPD Exacerbation, acute on chronic, Chest Pain due to esophageal spasm, HTN, Atrial Fibrillation, DM II Medication Instructions Additional med instructions Take 4 more days of prednisone, Take advair in stead of symbicort You pain medication for breakthrough is cut as requested by you. Diet Discharge Diet: Heart Healthy, Diabetic Activity Discharge Activity: No restrictions (use 3L oxyegn as before) Call your provider Call your provider for: Fever or Chills, Shortness of breath, Bleeding, Chest pain, Vomitting, Excessive diarrhea, Weakness (unilateral), Other Patient Instructions Patient Instructions Please see Dr. Elkins from GI for follow-up of your esophageal spasm Please see her PCP in one week Follow-up plan GI Follow up with Dr. Elkins in 2 weeks PCP f/u in one week Johanna Hernandez DO Aug 22, 2016 13:47
[2016-08-22] MEDS ORDERED: KLO1T PO (13:49)
--- NOTE | 2016-08-22 13:51 | PCM.DC.MED ---
Discharge Summary Date of Service Aug 22, 2016 Dates of Hospitalization Date of Hospital Admission Aug 19, 2016 at 15:41 Date of Discharge: Aug 22, 2016 Providers: Admitting Physician: Johanna Mackenzie DO Primary Care Physician: Frank Smart MD Attending Physician: Johanna Mackenzie DO Diagnosis at Time of Discharge Diagnosis at Time of Discharge COPD Exacerbation, acute on chronic, Chest Pain due to esophageal spasm, HTN, Atrial Fibrillation, DM II Consultations Cardiology Procedures XRay, CTs & MRIs PROCEDURE: X-RAY CHEST ONE VIEW ([id number]) INDICATIONS: chest pain IMPRESSION: Bibasilar atelectasis versus aspiration or pneumonia. Correlate clinically. Dictated by: Kehinde Lobo RRA Interpreted: Jeniffer Branham MD on 08/21/2016 at 9:41 Approved by: Jeniffer Branham M.D. on 08/21/2016 at 14:12 Brief History 66-year-old Mrs. Martinez is a pleasant white lady with a past medical history of congestive heart failure, COPD, A. fib, diabetes, hyperlipidemia, anxiety, depression, bipolar disorder is presenting today with concerns of increased dyspnea. She says that it has been ongoing for 5-6 days ago, she started having symptoms and she went to visit a relative who is dying of lung cancer, who smoked heavily at their home. She thinks that she may havegotten worse at that time. This a.m. she could not breathe at all, at baseline she only walks from room to room in the house today she could not even walk from the commode to her bed. She says that she had no fevers she has chills. She has no sputum and no sick contacts otherwise. She says that at baseline she some constipation but otherwise no other GI symptoms. She had chest tightness at home that has resolved since getting the breathing treatments at the ER. She says that she has a lot of wheezing and no cough however she has no headaches states that her eyesight has been gradually getting worse. In spite of getting new glasses. She has chronic pain for which she takes a lot of pain medication , chronic anxiety for which she takes benzodiazepines. All of her medications are prescribed by her doctor /PCP. 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 In the ER chest x-ray was nonacute by her white count was 10.9. She was given duonebs, albuterol, Zofran, prednisone by mouth, oxycodone. ABG showed overall pH of 7.43 compensated with a carbon dioxide of 53 and bicarbonate of 36 showing chronic compensation she was saturating on 3 L fully. Hospital Course This is a 66 yo WF with copd , DM 2, chronic pain, HFpEF CAD presenting with acute copd exacerbation. Dysphagia, acute esophageal spasm: -- She has had some EGD workup in [id number] for esophageal dysmotility, based on the records, she can follow up with Dr. Elkins as outpatient for esophageal spasm Exophthalmus: Thyroid is performed in the hospital not impressive, we suggest the patient follows up on her this finding --"Ophthalmopathy appears before the onset of hyperthyroidism in approximately 20 percent of patients, concurrently in about 40 percent, in the six months after diagnosis in about 20 percent, and after treatment for Graves' hyperthyroidism in the remainder (most commonly after radioiodine therapy). " -- PCP may consider following up with thyroperoxidase antibody tests Acute chest pain on 08/21/16, resolved -- Not relieved with morphoine 2 mg IV, nitro, GI cocktail, ASA, bretahing tx -- EKG non -acute -- trop neg -- Reviewed cxr myself, NAD: "bibalsilar atelectasis vs pneumonia, clinical correlation is required" -- Talked to dr. Pina on 08/21/16 who tells me pt was recently catheterized , she recommends to just to trend trops, stress test ok -- NM MIBI test 08/22/16 am: Patient went for this testing, Dr. Pina, patient 's certified coder had discussion with patient. Patient told Dr. Pina that she actually had an esophageal spasm are descended difficulty swallowing at the time of her chest pain episode on 08/21, Dr. Pina did not see any cardiac indication for the test and canceled the test. -- Patient is agreeable to following up with Dr. Elkins from GI in 2-3 weeks as outpatient. Acute on chronic COPD exacerbation POA: Resolved -- I reviewed the CXR from ED myself and did not see a concern f or pneumonia. -- ABG in ED showed compensated chronic hypercapnic resp failure -- Solu-Medrol 40 mg every 12 hours and doxycycline 100 mg BID IV for bronchitis -- The nebs, albuterol treatments when necessary, and continue her home Advair ( or Symbicort here) -- Sputum cultures ordered but canceled as she could not expectorate, respiratory panel are ordered and neg -- She will complete 5 days doxycycline course as outpatient in 4 days of prednisone -- Reduction in narcotics and benzodiazepines will help avoid resp depression in this pt. Insomnia, poa active -- melatonin hs prn was given Congestive heart failure, HFpEF chronic active -- Continue furosemide home med -- Reviewed patient's prior 2013 echo to understand the diagnosis, 65% EF, no major issues Diabetes mellitus II chronic active -- A1C 6.4, pre-diabetic: life style counseling -- Low SSI Hyperlipidemia chronic active -- continue home statin Anxiety chronic active -- Decrease home med clonazepam by half, patient agrees for dose reduction Chronic pain syndrome, active -- Morphine 15 mg PO BID PO -- Oxycodone 5 mg Po Q4HPRN -- She says she can stay on this dose, she in fact asked for a reduction in dosage of her pain meds Depression chronic active : Continue present continue home meds Bipolar disorder chronic, active -- hold off on Haldol Exam Vital Signs (Last) Date Time Temp Pulse Resp B/P Pulse Ox O2 Delivery O2 Flow Rate FiO2 08/22/16 12:54 36.4 65 20 162/76 94 Nasal Cannula 3.00 Exam General: No acute distress HEENT: Exopthalmos Heart: RRR, no s3/s4 sounds Lungs: no wheezing, no crackles, Abd: Non distended Ext: Trace edema Psych: Appears calm today Neuro: no focal deficits Test 08/19/16 11:35 08/19/16 11:45 08/19/16 12:18 08/20/16 09:06 Hold Urine Received (Received) White Blood Count 10.9th/mm3 (3.8-10.1) Red Blood Count 4.77mil/mm3 (3.90-5.20) Hemoglobin 11.8g/dL (12.0-15.6) Hematocrit 38.0% (35.0-46.0) Mean Corpuscular Volume 79.7fL (81-100) Mean Corpuscular Hemoglobin 24.7pg (27.0-35.0) Mean Corpuscular Hemoglobin Concent 31.1% (32.0-37.0) Red Cell Distribution Width 15.0% (12.3-15.4) Platelet Count 410bil/L (150-400) Neutrophils (%) (Auto) 73.5% (40-74) Lymphocytes (%) (Auto) 14.7% (14-46) Monocytes (%) (Auto) 4.6% (4-12) Eosinophils (%) (Auto) 6.3% (0-5) Basophils (%) (Auto) 0.5% (0-3) D-Dimer < 0.50mg/L FEU (<0.50) Hemoglobin A1c 6.4% (4.8-5.6) Total Bilirubin 0.3mg/dL (0.0-1.2) Aspartate Amino Transf (AST/SGOT) 29U/L (0-50) Alanine Aminotransferase (ALT/SGPT) 20U/L (0-32) Alkaline Phosphatase 77U/L (25-165) Pro-B-Type Natriuretic Peptide 151.5pg/mL (0-301) Total Protein 7.4g/dL (6.4-8.4) Albumin 3.9g/dL (3.4-5.0) Urine Color Straw (YELLOW) Urine Appearance Clear (CLEAR,HAZY) Urine pH 7.5 (5.0-8.0) Urine Specific [place] 1.005 (1.003-1.035) Urine Protein Negativemg/dL (NEG,TRACE) Urine Glucose (UA) Negativemg/dL (NEGATIVE) Urine Ketones Negativemg/dL (NEGATIVE) Urine Occult Blood Negative (NEGATIVE) Urine Nitrite Negative (NEGATIVE) Urine Bilirubin Negative (NEGATIVE) Urine Urobilinogen Normalmg/dL (NORMAL) Urine Leukocyte Esterase Negative (NEGATIVE) Urine RBC 0-2/hpf (0-2) Urine WBC 0-5/hpf (0-5) Urine Epithelial Cells Occasional/hpf (NONE-MOD) Urine Crystals None seen (NONE SEEN) Urine Bacteria Few/hpf (NONE-FEW) Urine Hyaline Casts None/lpf (NONE) Urine Granular Casts None seen (NONE SEEN) Urine Waxy Casts None seen (NONE SEEN) Urine Red Blood Cell Casts None seen (NONE SEEN) Urine White Blood Cell Casts None seen (NONE SEEN) Urine Mucus None seen (None Seen) Urine Trichomonas None seen (NONE SEEN) Urine Yeast None (NONE SEEN) Urinalysis Comment None Urine Culture Reflexed Not indicated Thyroid Stimulating Hormone (TSH) 0.218uIU/mL (0.450-4.500) Free Thyroxine 1.66ng/dL (0.82-1.77) Test 08/21/16 05:39 08/21/16 20:00 08/22/16 05:20 Sodium Level 138mEq/L (134-144) Potassium Level 4.0mEq/L (3.5-5.2) Chloride Level 97mEq/L (97-108) Carbon Dioxide Level 29mmol/L (18-29) Blood Urea Nitrogen 14mg/dL (8-27) Creatinine 0.60mg/dL (0.57-1.00) Estimat Glomerular Filtration Rate 144mL/min (>59) Glucose Level 126mg/dL (60-99) Calcium Level 9.8mg/dL (8.5-10.1) Total Creatine Kinase 366U/L (21-215) Creatine Kinase MB 9.5ng/mL (0.0-5.3) Creatine Kinase MB % 2.6% (0.0-5.0) Troponin T < 0.010ug/L (0.0-0.011) Prothrombin Time 24.1sec (8.1-12.5) Prothromb Time International Ratio 2.22ratio Discharge Medications Discharge Medications Albuterol Neb Soln (Albuterol Neb Soln) 2.5 Mg/3 Ml Vial.neb 2.5 MG IH QID ( Reported) Albuterol/Ipratropium (Combivent Respimat Inhal Anderson) 120 Spr/4 Gm Inhaler 1 PUFF IH QID (Reported) Aspirin (Aspirin) 81 Mg Tablet 81 MG PO QAM (Reported) Cyclobenzaprine (Cyclobenzaprine) 10 Mg Tablet 20 MG PO HS (Reported) Doxycycline Hyclate (Doxycycline Hyclate) 100 Mg Tablet 100 MG PO BID Prescribed by: JOHANNA MACKENZIE DO Fluticasone/Salmeterol (Advair 100-50 Diskus) 60 Puffs/Inh Disk 1 PUFFS IH BID Prescribed by: JOHANNA MACKENZIE DO Furosemide (Lasix) 20 Mg Tablet 60 MG PO QAM (Reported) Haloperidol (Haloperidol) 10 Mg Tablet 10 MG PO HS (Reported) Levothyroxine (Levothyroxine) 75 Mcg Tablet 75 MCG PO QAM (Reported) Metoprolol Tartrate (Metoprolol Tartrate) 25 Mg Tablet 12.5 MG PO BID (Reported ) Morphine Sulfate ER (Morphine Sulfate ER) 15 Mg Tablet.er 15 MG PO BID (Reported ) Nitroglycerin SL (Nitroglycerin SL) 0.4 Mg Tab.subl 0.4 MG SL Q5MIN (Reported) Pantoprazole DR (Pantoprazole DR) 40 Mg Tablet.dr 40 MG PO DAILY Prescribed by: YAA NEVAREZ MD Potassium Chloride ER (Potassium Chloride ER) 20 Meq Tablet.er 20 MEQ PO DAILYWM (Reported) TAKE WITH FOOD Pravastatin (Pravachol) 20 Mg Tab 20 MG PO HS (Reported) Prednisone (PredniSONE) 20 Mg Tablet 40 MG PO DAILY Prescribed by: JOHANNA MACKENZIE DO Venlafaxine ER (Effexor XR) 150 Mg Cap.er.24h 150 MG PO QAM (Reported) Vitamin B Complex & Vit C No.4 (Super B Complex) 150 Mg Tablet 150 MG PO HS ( Reported) Warfarin Sodium (Warfarin Sodium) 4 Mg Tablet 4 MG PO DAILY EXCEPT WED (Reported ) WARFARIN 6 MG ON WEDNESDAY AND 4 MG ALL OTHER DAYS Warfarin Sodium (Warfarin Sodium) 4 Mg Tablet 6 MG PO WEDNESDAY (Reported) WARFARIN 6 MG ON WEDNESDAY AND 4 MG ALL OTHER DAYS As needed Albuterol HFA (Proair HFA) 8.5 Gm Hfa.aer.ad 2 PUFFS INHALATION Q4H PRN PRN For Shortness of Breath (Reported) Clonazepam (Clonazepam) 1 Mg Tablet 1 MG PO BID PRN PRN For Anxiety Prescribed by: JOHANNA MACKENZIE DO oxyCODONE (oxyCODONE) 5 Mg Tablet 5 MG PO Q4H PRN PRN For Moderate Pain Prescribed by: JOHANNA MACKENZIE DO Additional med instructions Take 4 more days of prednisone, Take advair in stead of symbicort You pain medication for breakthrough is cut as requested by you. Followup Plan Follow-up plan GI Follow up with Dr. Elkins in 2 weeks PCP f/u in one week Discharge Diet: Heart Healthy, Diabetic Discharge Activity: No restrictions (use 3L oxyegn as before) Patient Instructions Please see Dr. Elkins from GI for follow-up of your esophageal spasm Please see her PCP in one week Time spent 35 minutes Johanna Mackenzie DO Aug 22, 2016 13:51
--- NOTE | 2016-08-22 13:57 | NUR ---
Social Work-discharge: Data:EMR reviewed. Pt is on day 3 of hospitalization for COPD per H&P. Pt is medically stable for discharge. Pt has been up independent in her room. Pt has home O2 through [facility]. No discharge needs identified. All updated and agreeable to plan. Assessment:Pt who is independent at baseline. Plan:Pt to discharge home today via POV. No discharge needs identified. All updated and agreeable to plan. AMIE Yates
--- NOTE | 2016-08-22 15:06 | NUR ---
Discharge Nursing note: Patient was discharged to home at 1500. Patients IV was removed intact. Her telemetry was discontinued. All of patients discharge information was reviewed with her and her questions were answered to her satisfaction. Patient was brought to the hospital lobby in a wheelchair by nursing staff member and she was driven to home by her .
== END 2016-08-22 15:10 | disposition home or self-care (01) | DRG 191 ==
LOC: SED 10:13 → EDBD 10:13 → OBSVTOIN 15:41 → MPC 15:41
PROVIDERS: ADMIT Family Medicine; ATTEND Family Medicine
PROC: 4A033R1 Measurement of Arterial Saturation, Peripheral, Percutaneous Approach (ICD-10-PCS; principal; 2016-08-19)
DX: J44.1 Chronic obstructive pulmonary disease with (acute) exacerbation (principal); I50.32 Chronic diastolic (congestive) heart failure; J96.12 Chronic respiratory failure with hypercapnia; E78.5 Hyperlipidemia, unspecified; I25.10 Atherosclerotic heart disease of native coronary artery without angina pectoris; E11.9 Type 2 diabetes mellitus without complications; F31.9 Bipolar disorder, unspecified; G89.4 Chronic pain syndrome; K22.4 Dyskinesia of esophagus; G47.00 Insomnia, unspecified; F41.9 Anxiety disorder, unspecified; Z87.891 Personal history of nicotine dependence; Z99.81 Dependence on supplemental oxygen; Z79.01 Long term (current) use of anticoagulants; Z79.51 Long term (current) use of inhaled steroids; Z95.5 Presence of coronary angioplasty implant and graft